=== PATIENT | female | born 1990 | race Caucasian/White ===

== ENCOUNTER 2018-01-09 19:33 | Emergency (ER) | payer SELFPAY ==
--- NOTE | 2018-01-09 20:15 | ER Document Report ---
HPI - HPI Patient complains to provider of: cough, right ear pain Onset: Other - 3 weeks Onset/Duration: Persistent Pain Level: 5 Context: 27 yo non smoker female with congested cough for 3 weeks, now has severe right ear pain especially with the cough. No fever. No shortness of breath, can't sleep due to cough. Associated Symptoms: None Exacerbated by: Denies Relieved by: Denies - ROS ROS below otherwise negative: Yes Systems Reviewed and Negative: Yes All other systems reviewed and negative - EENT EENT: REPORTS: Ear Pain - RESPIRATORY Respiratory: REPORTS: Coughing - x4 weeks - REPRODUCTIVE Reproductive: REPORTS: : Past Medical History - General Information source: Patient - Social History Smoking Status: Never Smoker Frequency of alcohol use: None Lives with: Family Family History: Reviewed & Not Pertinent Patient has suicidal ideation: No Patient has homicidal ideation: No Neurological Medical History: Reports: Hx Migraine - COMPLEX MIGRAINES Renal/ Medical History: Denies: Hx Peritoneal Dialysis Surgical Hx: Negative - Immunizations Hx Diphtheria, Pertussis, Tetanus Vaccination: Yes Vertical Provider Document - CONSTITUTIONAL Agree With Documented VS: Yes Exam Limitations: No Limitations General Appearance: No Apparent Distress - INFECTION CONTROL TRAVEL OUTSIDE OF THE [place] IN LAST 30 DAYS: No - HEENT HEENT: Pharyngeal Erythema Notes: left tm normal, only portion of right tm seen and it is normal. base of tm not visualized due to wax - NECK Neck: Supple - RESPIRATORY Respiratory: Rales - left - CARDIOVASCULAR Cardiovascular: Regular Rate, Regular Rhythm - NEURO Level of Consciousness: Awake - DERM Integumentary: No Rash Course - Re-evaluation Re-evalutation: 01/09/18 20:54 nebulizer is helping, chest xray is negative per rad, moving air better, few rales left base. not . tetanus 4 months ago 01/09/18 21:11 01/09/18 21:12 - Vital Signs Vital signs: Temp Pulse Resp BP Pulse Ox 97.4 F 93 18 126/65 H 100 01/09/18 19:43 01/09/18 19:43 01/09/18 19:43 01/09/18 19:43 01/09/18 19:43 Discharge - Discharge Clinical Impression: Cough, Otalgia, right ear, puncture wound plantar left foot Condition: Good Disposition: HOME, SELF-CARE Instructions: Bronchitis ([facility]), Doxycycline ([facility]), Inhaled Bronchodilators ([facility] ), Oral Narcotic Medication ([facility]), Puncture Wound ([facility]), Steroid Medication Additional Instructions: hydrocodone for the ear pain antibiotics for bronchitis and ear infection to er if worse use the albuterol MDI 2 puffs every 3 hours for cough prednisone for 4 more days Prescriptions: Albuterol Sulfate [Proair HFA Inhalation Aerosol 8.5 gm MDI] 2 puff IH Q3HP PRN #1 hfa.[email or web address].ad PRN Reason: Hydrocodone Bit/Acetaminophen [Hydrocodon-Acetaminophen 5-325] 1 each PO Q4HP PRN #10 tablet PRN Reason: Doxycycline Hyclate 100 mg PO BID #20 capsule Prednisone [Deltasone 20 mg Tablet] 40 mg PO DAILY #8 tablet
[2018-01-09] MEDS ORDERED: IPRATROPIUM/ALBUTEROL 0.5-2.5 MG/3 ML AMPUL NEB ONE (20:19)
[2018-01-09] MEDS ORDERED: HYDROCODONE/ACETAMINOPHEN 5-325 MG TABLET PO ONE (20:22)
--- NOTE | 2018-01-09 20:44 | RADIOLOGY REPORT (SQ) ---
EXAM DESCRIPTION: CHEST 2 VIEWS COMPLETED DATE/TIME: 01/09/2018 8:34 pm REASON FOR STUDY: cough 3 weeks, rales left base COMPARISON: None. EXAM PARAMETERS: NUMBER OF VIEWS: two views TECHNIQUE: Digital Frontal and Lateral radiographic views of the chest acquired. RADIATION DOSE: NA LIMITATIONS: none FINDINGS: LUNGS AND PLEURA: No opacities, masses or pneumothorax. No pleural effusion. MEDIASTINUM AND HILAR STRUCTURES: No masses or contour abnormalities. HEART AND VASCULAR STRUCTURES: Heart normal size. No evidence for failure. BONES: No acute findings. HARDWARE: None in the chest. OTHER: No other significant finding. IMPRESSION: NO ACUTE RADIOGRAPHIC FINDING IN THE CHEST. TECHNICAL DOCUMENTATION: JOB ID: [id number] [employer]- All Rights Reserved Reading location - IP/workstation name: [email or web address]
[2018-01-09] MEDS ORDERED: PREDNISONE 20 MG TABLET PO ONE (20:55)
[2018-01-09] MEDS ORDERED: DOXYCYCLINE HYCLATE 100 MG TABLET PO ONE (20:58)
[2018-01-09] MEDS ORDERED: ALBUTEROL SULFATE 0.083% NEB 2.5 MG/3 ML AMPUL NEB ONE (20:58)
[2018-01-09] MEDS ORDERED: HYDROCODONE/ACETAMINOPHEN 5-325 MG (6 TAB/ER DISP) PO PRN (21:15)
[2018-01-09] MEDS ORDERED: ALBUTEROL SULFATE HFA (90 MCG/PUFF) 200 PUFF/8.5 GM MDI IH ONE (21:15)
[2018-01-09 21:31] VITALS: BP 130/65
== END 2018-01-09 21:31 | disposition home or self-care (01) ==
LOC: ER 19:33
DX: O26.899 Other specified pregnancy related conditions, unspecified trimester (principal); R05 Cough; H61.21 Impacted cerumen, right ear; H92.01 Otalgia, right ear; R09.89 Other specified symptoms and signs involving the circulatory and respiratory systems; O9A.219 Injury, poisoning and certain other consequences of external causes complicating pregnancy, unspecified trimester; S91.332A Puncture wound without foreign body, left foot, initial encounter; Z3A.00 Weeks of gestation of pregnancy not specified; W45.0XXA Nail entering through skin, initial encounter
CPT/HCPCS: 94640 ×2; 99283; 71046; J7512; J3490; J7620

== ENCOUNTER 2018-10-22 03:10 | Emergency (ER) | payer MEDICAID ==
[2018-10-22 03:17] VITALS: BP 144/81
== END 2018-10-22 04:06 | disposition left against medical advice (07) ==
LOC: ER 03:10
DX: Z53.21 Procedure and treatment not carried out due to patient leaving prior to being seen by health care provider (principal)